=== PATIENT | female | born 2000 | race African-American/Black ===

== ENCOUNTER 2024-12-12 13:22 | Emergency (ER) | payer OTHER ==
[~2024-12-12] VITALS: Ht 162.6 cm; Wt 55.0 kg
[2024-12-12 14:15] LABS: APPEARANCE, URINE HAZY (CLEAR); BACTERIA, URINE AUTO 1+ (NEGATIVE); BILIRUBIN, URINE AUTO NEGATIVE (NEGATIVE); BLOOD, URINE BLOOD 3+ (NEGATIVE); COLOR, URINE YELLOW (YELLOW); GLUCOSE, URINE (UA) AUTO NEGATIVE (NEGATIVE); KETONE, URINE AUTO NEGATIVE (NEGATIVE); LEUKOCYTE ESTERASE, URINE AUTO NEGATIVE (NEGATIVE); MUCUS, URINE SMALL (NEGATIVE); NITRITE, URINE AUTO NEGATIVE (NEGATIVE); PROTEIN, URINE AUTO NEGATIVE (NEGATIVE); RBC, URINE AUTO 3 /HPF (0-3); SPECIFIC GRAVITY URINE AUTO 1.012 (1.002-1.035); SQUAMOUS EPITHELIAL CELL UR AU 3 /HPF (0-6); UROBILINOGEN, URINE AUTO 0.2 mg/dL (0.0-2.0); WBC, URINE AUTO 1 /HPF (0-3)
[2024-12-12 14:19] LABS: BASO % 0.4 % (0.0-1.0); EOS # 0.1 10^3/uL (0.0-0.5); EOS % 1.2 % (0.0-3.0); HEMATOCRIT 38.3 % (36.0-47.0); HEMOGLOBIN 12.8 g/dl (12.0-15.5); LYMPH # 3.1 10^3/uL (1.5-5.0); MEAN CORPUSCULAR HEMOGLOBIN 29.6 pg (27.0-33.0); MEAN CORPUSCULAR HGB CONC 33.4 g/dl (32.0-36.5); MEAN CORPUSCULAR VOLUME 88.5 fl (80.0-96.0); MONO # 0.5 10^3/uL (0.0-0.8); MONO % 6.6 % (2.0-8.0); NEUTROPHILS # 3.2 10^3/uL (1.5-8.5); NEUTROPHILS % 46.7 % (36.0-66.0); PLATELET COUNT, AUTOMATED 268 10^3/uL (150-450); RED BLOOD COUNT 4.33 10^6/uL (4.00-5.40); WHITE BLOOD COUNT 6.8 10^3/uL (4.0-10.0)
[2024-12-12 16:12] VITALS: BP 119/56; TEMP 98.9; O2SAT 100
[2024-12-12] MEDS ORDERED: CEPH500C PO (16:48)
== END 2024-12-12 16:59 | disposition home or self-care (01) ==
LOC: M ED 13:22
DX: R78.81 Bacteremia (principal); Z79.2 Long term (current) use of antibiotics

== ENCOUNTER 2024-12-14 13:20 | Emergency (ER) | payer OTHER ==
[~2024-12-14] VITALS: Ht 162.6 cm; Wt 53.4 kg
[~2024-12-14 13:20] MED LIST: CEPH500C PO
[2024-12-14 15:21] VITALS: BP 110/70; TEMP 98.2; O2SAT 99
== END 2024-12-14 15:24 | disposition home or self-care (01) ==
LOC: M ED 13:20
DX: Z32.01 Encounter for pregnancy test, result positive (principal); Z79.2 Long term (current) use of antibiotics

== ENCOUNTER → 2024-12-16 | Outpatient (CLI) | payer OTHER | LOC: M LAB 15:39 | PROVIDERS: ATTEND Advanced Practice Midwife | DX: O20.0 Threatened abortion (principal) ==

== ENCOUNTER 2024-12-20 16:18 | Emergency (ER) | payer OTHER ==
[~2024-12-20] VITALS: Ht 162.6 cm; Wt 56.1 kg
[2024-12-20 17:02] LABS: BASO % 0.5 % (0.0-1.0); EOS # 0.1 10^3/uL (0.0-0.5); HEMATOCRIT 34.4 % (36.0-47.0); HEMOGLOBIN 11.7 g/dl (12.0-15.5); LYMPH # 3.4 10^3/uL (1.5-5.0); LYMPH % 44.6 % (24.0-44.0); MEAN CORPUSCULAR HEMOGLOBIN 30.3 pg (27.0-33.0); MEAN CORPUSCULAR VOLUME 89.1 fl (80.0-96.0); MONO # 0.5 10^3/uL (0.0-0.8); MONO % 7.1 % (2.0-8.0); NEUTROPHILS # 3.6 10^3/uL (1.5-8.5); NEUTROPHILS % 46.7 % (36.0-66.0); PLATELET COUNT, AUTOMATED 253 10^3/uL (150-450); RED BLOOD COUNT 3.86 10^6/uL (4.00-5.40); WHITE BLOOD COUNT 7.7 10^3/uL (4.0-10.0)
[2024-12-20 17:42] LABS: HCG, SERUM QUANTITATIVE 10216.7 MIU/ML (<4.2)
[2024-12-20 22:03] LABS: ALBUMIN 3.8 G/DL (3.2-5.2); ALKALINE PHOSPHATASE 45 U/L (35-104); ALT/SGPT 13 U/L (7.0-40); AST/SGOT < 8 U/L (<34); BILIRUBIN,TOTAL 0.3 MG/DL (0.3-1.2); BLOOD UREA NITROGEN 9 MG/DL (9-23); CARBON DIOXIDE LEVEL 24 MMOL/L (20-31); CHLORIDE LEVEL 105 MMOL/L (98-107); CREATININE FOR GFR 0.61 MG/DL (0.55-1.30); GLOMERULAR FILTRATION RATE > 90.0 (>60); GLUCOSE, FASTING 84 MG/DL (60-100); POTASSIUM SERUM 3.9 MMOL/L (3.5-5.1); SODIUM LEVEL 138 MMOL/L (136-145); TOTAL PROTEIN 6.8 G/DL (5.7-8.2)
[2024-12-20 22:17] LABS: KETONE, URINE AUTO RFX TRACE mg/dL (NEGATIVE); LEUKOCYTE ESTERASE UR AUTO RFX NEGATIVE (NEGATIVE); NITRITE, URINE AUTO RFX NEGATIVE (NEGATIVE); RBC, URINE AUTO RFX 1 /HPF (0-3); SQUAM EPITHELIAL CELL UR AURFX 4 /HPF (0-6); WBC, URINE AUTO RFX 0 /HPF (0-3)
[2024-12-20 23:11] VITALS: BP 103/65; TEMP 97.8; O2SAT 99
[2024-12-20 23:25] LABS: Trichomonas vaginalis (AMP) NOT DETECTED (NEGATIVE)
[2024-12-20 23:49] LABS: GC DNA AMPLIFICATION NEGATIVE (NEGATIVE)
== END 2024-12-20 23:13 | disposition home or self-care (01) ==
LOC: M ED 16:18
DX: O20.0 Threatened abortion (principal); O46.91 Antepartum hemorrhage, unspecified, first trimester; Z3A.01 Less than 8 weeks gestation of pregnancy; Z79.2 Long term (current) use of antibiotics

== ENCOUNTER → 2025-03-27 | Outpatient (CLI) | payer OTHER | LOC: M WHC 07:51 | PROVIDERS: ATTEND Advanced Practice Midwife | DX: Z34.02 Encounter for supervision of normal first pregnancy, second trimester (principal); Z3A.20 20 weeks gestation of pregnancy ==

== ENCOUNTER → 2025-05-08 | Outpatient (CLI) | payer OTHER ==
[2025-05-08 14:40] LABS: PLATELET COUNT, AUTOMATED 211 10^3/uL (150-450)
[2025-05-08 14:54] LABS: GLUCOSE CHALLENGE TEST 1 HOUR 99 MG/DL (LESS THAN 140)
[2025-05-08 15:24] LABS: HIV 1&2 SCREEN NEGATIVE (NEGATIVE)
[2025-05-08 15:32] LABS: HEPATITIS C VIRUS ABY INDEX < 0.02 INDEX (<0.8)
[2025-05-08 15:33] LABS: Trichomonas vaginalis (AMP) NOT DETECTED (NEGATIVE)
[2025-05-08 15:56] LABS: GC DNA AMPLIFICATION NEGATIVE (NEGATIVE)
== END ==
LOC: M PLALAB 10:58
PROVIDERS: ATTEND Student in an Organized Health Care Education/Training Program
DX: Z33.1 Pregnant state, incidental (principal)

== ENCOUNTER 2025-05-19 11:13 | Emergency (ER) | payer OTHER ==
[2025-05-19 11:15] VITALS: BP 107/65; TEMP 97.9; O2SAT 98
[2025-05-19] MEDS ORDERED: PRENTAB9 PO (11:53)
== END 2025-05-19 11:21 | disposition admitted as inpatient to this hospital (09) ==
LOC: M ED 11:13
DX: Z53.21 Procedure and treatment not carried out due to patient leaving prior to being seen by health care provider (principal)

== ENCOUNTER 2025-05-19 11:23 | Outpatient (CLI) | payer OTHER ==
[~2025-05-19] VITALS: Ht 162.6 cm; Wt 64.2 kg
[2025-05-19 11:49] VITALS: BP 102/66
[2025-05-19] MEDS ORDERED: PRENTAB9 PO (11:53)
[2025-05-19 14:05] LABS: BASO # 0.0 10^3/uL (0.0-0.2); BASO % 0.2 % (0.0-1.0); EOS # 0.1 10^3/uL (0.0-0.5); EOS % 1.0 % (0.0-3.0); LYMPH # 1.9 10^3/uL (1.5-5.0); LYMPH % 23.5 % (24.0-44.0); MONO # 0.7 10^3/uL (0.0-0.8); MONO % 9.1 % (2.0-8.0); NEUTROPHILS # 5.4 10^3/uL (1.5-8.5); NEUTROPHILS % 65.7 % (36.0-66.0); PLATELET COUNT, AUTOMATED 209 10^3/uL (150-450)
[2025-05-19 14:25] LABS: ALT/SGPT 24 U/L (7.0-40); AST/SGOT 13 U/L (<34); CALCIUM LEVEL 9.0 MG/DL (8.5-10.1); CARBON DIOXIDE LEVEL 24 MMOL/L (20-31); CHLORIDE LEVEL 106 MMOL/L (98-107); CREATININE FOR GFR 0.54 MG/DL (0.55-1.30); GLOMERULAR FILTRATION RATE > 90.0 (>60); POTASSIUM SERUM 3.9 MMOL/L (3.5-5.1); SODIUM LEVEL 137 MMOL/L (136-145)
[2025-05-19 14:56] VITALS: BP 106/64
== END 2025-05-19 15:05 | disposition home or self-care (01) ==
LOC: M LDO 11:23
PROVIDERS: ATTEND Advanced Practice Midwife
DX: O26.892 Other specified pregnancy related conditions, second trimester (principal); R10.10 Upper abdominal pain, unspecified; Z3A.27 27 weeks gestation of pregnancy
CPT/HCPCS: 36415; 59025; 80053; 82150; 83690; 85025; G0463

== ENCOUNTER → 2025-06-10 | Outpatient (CLI) | payer OTHER ==
[~2025-06-10] MED LIST changes: +PRENTAB9 PO
== END ==
LOC: M WHC 15:37
PROVIDERS: ATTEND Student in an Organized Health Care Education/Training Program
DX: O26.843 Uterine size-date discrepancy, third trimester (principal); Z3A.29 29 weeks gestation of pregnancy

== ENCOUNTER → 2025-06-20 | Outpatient (CLI) | payer OTHER ==
[2025-06-21 05:06] LABS: RUBELLA IgG FOR TORCH EVAL 1.27 index (Immune >0.99); RUBELLA IgM FOR TORCH EVAL <20.0 AU/mL (0.0-19.9)
[2025-06-23 13:37] LABS: HSV 1 IGG TYPE SPECIFIC < 0.90 index (<0.90); HSV 2 IGG TYPE SPECIFIC < 0.90 index (<0.90)
[2025-06-23 13:52] LABS: CYTOMEGALOVIRUS ANTIBODY IGG 7.30 U/mL (<0.60); CYTOMEGALOVIRUS IgM ANTIBODY < 30.00 AU/mL (<30.00)
[2025-06-23 14:08] LABS: HERPES ZOSTER, VARICELLA IgG 1.93 S/CO (>=1.00)
== END ==
LOC: M PLALAB 11:34
PROVIDERS: ATTEND Obstetrics & Gynecology
DX: O36.5990 Maternal care for other known or suspected poor fetal growth, unspecified trimester, not applicable or unspecified (principal)

== ENCOUNTER → 2025-06-25 | Outpatient (CLI) | payer OTHER | LOC: M WHC 16:14 | PROVIDERS: ATTEND Student in an Organized Health Care Education/Training Program | DX: O36.5990 Maternal care for other known or suspected poor fetal growth, unspecified trimester, not applicable or unspecified (principal) ==

== ENCOUNTER → 2025-07-02 | Outpatient (CLI) | payer OTHER | LOC: M WHC 14:07 | PROVIDERS: ATTEND Student in an Organized Health Care Education/Training Program | DX: O36.5990 Maternal care for other known or suspected poor fetal growth, unspecified trimester, not applicable or unspecified (principal); Z3A.33 33 weeks gestation of pregnancy ==

== ENCOUNTER → 2025-07-09 | Outpatient (CLI) | payer OTHER | LOC: M WHC 14:03 | PROVIDERS: ATTEND Student in an Organized Health Care Education/Training Program | DX: O36.5990 Maternal care for other known or suspected poor fetal growth, unspecified trimester, not applicable or unspecified (principal) ==

== ENCOUNTER → 2025-07-15 | Outpatient (REF) | payer OTHER | LOC: M PLALAB 09:56 | PROVIDERS: ATTEND Student in an Organized Health Care Education/Training Program | DX: Z34.03 Encounter for supervision of normal first pregnancy, third trimester (principal); Z3A.36 36 weeks gestation of pregnancy ==

== ENCOUNTER → 2025-07-16 | Outpatient (CLI) | payer OTHER | LOC: M WHC 13:08 | PROVIDERS: ATTEND Student in an Organized Health Care Education/Training Program | DX: O36.5990 Maternal care for other known or suspected poor fetal growth, unspecified trimester, not applicable or unspecified (principal) ==

== ENCOUNTER → 2025-07-23 | Outpatient (CLI) | payer OTHER | LOC: M WHC 14:44 | PROVIDERS: ATTEND Student in an Organized Health Care Education/Training Program | DX: O36.5990 Maternal care for other known or suspected poor fetal growth, unspecified trimester, not applicable or unspecified (principal) ==

== ENCOUNTER → 2025-07-30 | Outpatient (CLI) | payer OTHER | LOC: M WHC 14:03 | PROVIDERS: ATTEND Student in an Organized Health Care Education/Training Program | DX: O36.5990 Maternal care for other known or suspected poor fetal growth, unspecified trimester, not applicable or unspecified (principal) ==

== ENCOUNTER → 2025-08-06 | Outpatient (CLI) | payer OTHER | LOC: M WHC 13:57 | PROVIDERS: ATTEND Student in an Organized Health Care Education/Training Program | DX: O36.5990 Maternal care for other known or suspected poor fetal growth, unspecified trimester, not applicable or unspecified (principal) ==

== ENCOUNTER 2025-08-07 07:41 | Inpatient (IN) | payer OTHER ==
[~2025-08-07] VITALS: Ht 162.6 cm; Wt 68.8 kg
[2025-08-07] VITALS (31 sets, daily range): BP systolic 81–124; BP diastolic 50–81
[2025-08-07] MEDS ORDERED: HOME MED LIST COMPLETE! XX SCH (08:30)
[2025-08-07 09:05] LABS: PLATELET COUNT, AUTOMATED 218 10^3/uL (150-450)
[2025-08-07 09:53] LABS: HIV 1&2 SCREEN NEGATIVE (NEGATIVE)
[2025-08-07] MEDS: miSOPROStol 25 MCG 1/4 TABLET PV ONE (09:55)
[2025-08-07 10:01] LABS: HEPATITIS C VIRUS ABY INDEX 0.05 INDEX (<0.8)
[2025-08-07] MEDS ORDERED: NALOXONE INJ 0.4 MG/1 ML VIAL IV PRN (14:10)
[2025-08-07] MEDS ORDERED: diphenhydrAMINE 50 MG/ML VIAL IV PRN (14:10)
[2025-08-07] MEDS ORDERED: EPIDURAL/PCA KEYS XX PRN (14:10)
[2025-08-07] MEDS: FENTANYL/ROPIVACAINE/NACL BAG 100 ML EPIDURAL SCH (14:31)
[2025-08-07] MEDS: LR 500 ML IV PRN (15:43)
[2025-08-07] MEDS ORDERED: OXYTOCIN DRIP 30 UNITS in IV 1 EA IV SCH (17:15)
[2025-08-07] MEDS: LR 1,000 ML IV SCH ×2 (17:37→21:01)
[2025-08-07] MEDS: ONDANSETRON 4MG/2ML VIAL IV PRN (21:30)
[2025-08-08] VITALS (7 sets, daily range): BP systolic 89–126; BP diastolic 52–74; O2SAT 97–98
[2025-08-08] MEDS: OXYTOCIN DRIP 30 UNITS in IV 1 EA IV PRN (00:10)
[2025-08-08] MEDS ORDERED: METHYLERGONOVINE MALEATE 0.2 MG/ML 1 ML VIAL As Ordered ONE (00:14)
[2025-08-08] MEDS: METHYLERGONOVINE MALEATE 0.2 MG/ML 1 ML VIAL IM STA (00:22)
[2025-08-08] MEDS ORDERED: METHYLERGONOVINE MALEATE 0.2 MG TAB PO PRN (00:30)
[2025-08-08] MEDS ORDERED: ACETAMINOPHEN 325 MG TAB PO PRN (00:30)
[2025-08-08] MEDS ORDERED: IBUPROFEN 600 MG TAB PO PRN (00:30)
[2025-08-08] MEDS ORDERED: RHOGAM 300MCG (1500IU) INJ IM SCH (00:30)
[2025-08-08] MEDS: IBUPROFEN 800 MG TAB PO PRN (02:22)
[2025-08-08] MEDS: DIBUCAINE 1% OINTMENT 30 GM TOP PRN (02:22)
[2025-08-08] MEDS: ACETAMINOPHEN 500 MG TAB PO PRN (06:25)
[2025-08-08] MEDS: DOCUSATE SODIUM 100 MG CAPSULE PO PRN (08:57)
[2025-08-08] MEDS: PRENATAL VITAMINS CHEWABLE TABLET PO SCH (08:57)
[2025-08-09 06:00] VITALS: BP 110/74; O2SAT 99
[2025-08-09 08:00] LABS: PLATELET COUNT, AUTOMATED 215 10^3/uL (150-450)
[2025-08-09] MEDS ORDERED: IBUP80TA PO (12:23)
[2025-08-09] MEDS ORDERED: ACET-683 PO (12:23)
[2025-08-10] MEDS ORDERED: MEASLES,MUMPS,RUBELLA VACCINE INJ (MMR-II) SC.IMMUN ONE (09:00)
== END 2025-08-09 16:00 | disposition home or self-care (01) | DRG 807 ==
LOC: M LDI 07:41 → M OBS 08-08 02:17
PROVIDERS: ADMIT Student in an Organized Health Care Education/Training Program; ATTEND Student in an Organized Health Care Education/Training Program
PROC: 3E0P7GC Introduction of Other Therapeutic Substance into Female Reproductive, Via Natural or Artificial Opening (ICD-10-PCS; 2025-08-07)
PROC: 10907ZC Drainage of Amniotic Fluid, Therapeutic from Products of Conception, Via Natural or Artificial Opening (ICD-10-PCS; 2025-08-07)
PROC: 10E0XZZ Delivery of Products of Conception, External Approach (ICD-10-PCS; principal; 2025-08-08)
DX: O36.5930 Maternal care for other known or suspected poor fetal growth, third trimester, not applicable or unspecified (principal); Z37.0 Single live birth; Z3A.39 39 weeks gestation of pregnancy; O76 Abnormality in fetal heart rate and rhythm complicating labor and delivery